=== PATIENT | male | born 1980 ===

== ENCOUNTER 2025-04-26 10:56 | Inpatient (IN) ==
[2025-04-26] MEDS ORDERED: ONDANSETRON 4 MG/2 ML VIAL IV PRN (13:10)
[2025-04-26] MEDS ORDERED: ACETAMINOPHEN 325 MG TABLET PO PRN (13:10)
[2025-04-26] MEDS ORDERED: IPRATROPIUM/ALBUTEROL 3 ML AMPUL.NEB NEB PRN (13:10)
[2025-04-26] MEDS ORDERED: VANCOMYCIN PER PHARMACY IV SCH (13:10)
[2025-04-26] MEDS: 0.9 % SODIUM CHLORIDE 10 ML SYRINGE IV SCH (14:43)
[2025-04-26 14:49] LABS: Vancomycin,Random 5.2 ug/mL
[2025-04-26] MEDS ORDERED: GADOBENATE DIMEGLUMINE 20 ML/VIAL IV ONE (16:56)
[2025-04-26] MEDS: CEFEPIME 1 GM VIAL IV SCH (17:25)
[2025-04-26] MEDS: VANCOMYCIN 1,500 MG in 0.9 % SODIUM CHLORIDE 500 ML IV ONE (17:26)
[2025-04-26 20:18] LABS: C-Reactive Protein 15.70 mg/dL (0.03-0.80)
[2025-04-26] MEDS: SENNOSIDES 1 TABLET PO SCH (21:11)
[2025-04-26] MEDS: MELOXICAM 7.5 MG TABLET PO SCH (21:11)
[2025-04-26] MEDS: DOCUSATE SODIUM 100 MG CAPSULE PO SCH (21:11)
[2025-04-26] MEDS: VANCOMYCIN 500 MG in 0.9 % SODIUM CHLORIDE 100 ML IV ONE (21:12)
[2025-04-26] MEDS: 0.9 % SODIUM CHLORIDE 1,000 ML IV SCH (23:47)
[2025-04-27 06:11] LABS: Basophils # (Auto) 0.01 K/mcL (0.00-0.30); Basophils % (Auto) 0.1 % (0.0-2.0); Eosinophils # (Auto) 0 K/mcL (0.00-0.70); Eosinophils % (Auto) 0 % (0.0-7.0); Hematocrit 42.0 % (40.1-51.0); Hemoglobin 14.3 g/dL (13.7-17.5); Lymphocytes # (Auto) 1.14 K/mcL (1.50-4.80); Lymphocytes % (Auto) 12.5 % (15.5-49.0); Mean Corpuscular HGB Conc 34.0 g/dL (31.0-36.0); Monocytes # (Auto) 0.70 K/mcL (0.10-0.90); Monocytes % (Auto) 7.7 % (1.0-12.0); Neutrophils % (Auto) 79.6 % (38.0-78.0); Platelet Count 269 K/mcL (140-440); RBC 4.67 M/mcL (4.63-6.08); WBC 9.1 K/mcL (4.5-11.0)
[2025-04-27 06:23] LABS: Anion Gap 10.0 (8.0-16.0); Blood Urea Nitrogen 8 mg/dL (6-20); Calcium 8.6 mg/dL (8.6-10.4); Carbon Dioxide 25 mmol/L (22-30); Chloride 102 mmol/L (96-108); Glucose 97 mg/dL (70-105); Potassium 4.7 mmol/L (3.3-5.1); Sodium 137 mmol/L (133-145)
[2025-04-27] MEDS: VANCOMYCIN 1,500 MG in 0.9 % SODIUM CHLORIDE 500 ML IV SCH (08:35)
[2025-04-27] MEDS ORDERED: ENOXAPARIN 40 MG/0.4 ML SYRINGE SQ SCH (09:00)
[2025-04-27] MEDS ORDERED: PROPOFOL 200 MG/20 ML VIAL IV ONE ×2 (09:39→10:57)
[2025-04-27] MEDS ORDERED: MIDAZOLAM 2 MG/2 ML VIAL ONE (09:39)
[2025-04-27] MEDS ORDERED: DEXAMETHASONE 10 MG/ML VIAL ONE (09:40)
[2025-04-27] MEDS ORDERED: METOCLOPRAMIDE 10 MG/2 ML VIAL ONE (09:40)
[2025-04-27] MEDS ORDERED: ePHEDrine 50 MG/5 ML SYRINGE (ANEST) IV ONE (09:40)
[2025-04-27] MEDS ORDERED: ONDANSETRON 4 MG/2 ML VIAL ONE (09:40)
[2025-04-27] MEDS ORDERED: PHENYLephrine 1 MG/10 ML SYRINGE (ANEST) ONE (09:40)
[2025-04-27] MEDS ORDERED: KETOROLAC 30 MG/ML VIAL ONE (09:40)
[2025-04-27] MEDS ORDERED: LIDOCAINE 2% PF 5 ML VIAL ONE (09:40)
[2025-04-27] MEDS ORDERED: GLYCOPYRROLATE 0.2 MG/ML VIAL IV ONE (09:40)
[2025-04-27] MEDS ORDERED: FAMOTIDINE/PF 20 MG/2 ML VIAL IV ONE (09:40)
[2025-04-27] MEDS ORDERED: TRANEXAMIC ACID 1,000 MG/10 ML VIAL ONE (09:40)
[2025-04-27] MEDS ORDERED: SUCCINYLCHOLINE 200 MG/10 ML VIAL IV ONE ×3 (09:49→09:55)
[2025-04-27] MEDS ORDERED: DEXMEDETOMIDINE HCL 200 MCG/2 ML VIAL ONE (11:28)
[2025-04-27] MEDS ORDERED: 0.9 % SODIUM CHLORIDE 100 ML IV ONE (11:28)
[2025-04-27] MEDS ORDERED: fentaNYL 100 MCG/2 ML VIAL IV PRN (11:36)
[2025-04-27] MEDS ORDERED: DROPERIDOL 5 MG/2 ML VIAL IV PRN (11:36)
[2025-04-27] MEDS ORDERED: HYDROmorphone 0.5 MG/0.5 ML SYRINGE IV PRN (11:36)
[2025-04-27] MEDS ORDERED: IPRATROPIUM/ALBUTEROL 3 ML AMPUL.NEB NEB PRN (11:36)
[2025-04-27] MEDS: VANCOMYCIN 1 GM VIAL TOPICAL SCH (11:40)
[2025-04-27] MEDS ORDERED: ROPIVACAINE HCL/PF 30 ML VIAL IJ ONE (12:03)
[2025-04-27] MEDS: LACTATED RINGERS 1,000 ML IV SCH (21:00)
[2025-04-28 05:46] LABS: Basophils # (Auto) 0.01 K/mcL (0.00-0.30); Basophils % (Auto) 0.1 % (0.0-2.0); Eosinophils # (Auto) 0 K/mcL (0.00-0.70); Eosinophils % (Auto) 0 % (0.0-7.0); Hematocrit 36.9 % (40.1-51.0); Hemoglobin 12.6 g/dL (13.7-17.5); Lymphocytes # (Auto) 0.89 K/mcL (1.50-4.80); Lymphocytes % (Auto) 7.5 % (15.5-49.0); Mean Corpuscular HGB Conc 34.1 g/dL (31.0-36.0); Monocytes # (Auto) 0.67 K/mcL (0.10-0.90); Monocytes % (Auto) 5.6 % (1.0-12.0); Neutrophils % (Auto) 86.5 % (38.0-78.0); Platelet Count 262 K/mcL (140-440); RBC 4.11 M/mcL (4.63-6.08); WBC 11.9 K/mcL (4.5-11.0)
[2025-04-28 06:10] LABS: C-Reactive Protein 8.91 mg/dL (0.03-0.80)
[2025-04-28 06:15] LABS: Anion Gap 9.0 (8.0-16.0); Blood Urea Nitrogen 11 mg/dL (6-20); Calcium 8.0 mg/dL (8.6-10.4); Carbon Dioxide 22 mmol/L (22-30); Chloride 106 mmol/L (96-108); Glucose 103 mg/dL (70-105); Potassium 3.9 mmol/L (3.3-5.1); Sodium 137 mmol/L (133-145)
[2025-04-28] MEDS: ENOXAPARIN 40 MG/0.4 ML SYRINGE SQ SCH (09:48)
[2025-04-28] MEDS ORDERED: MINERAL OIL 1 DOSE ENEMA PR PRN (10:10)
[2025-04-28] MEDS ORDERED: BISACODYL 10 MG SUPP.RECT PR PRN (10:10)
[2025-04-28] MEDS ORDERED: POLYETHYLENE GLYCOL 3350 17 GM PACKET PO PRN (10:10)
[2025-04-28] MEDS: MAGNESIUM HYDROXIDE 30 ML ORAL.SUSP PO PRN (11:08)
[2025-04-29 06:04] LABS: Basophils # (Auto) 0.01 K/mcL (0.00-0.30); Basophils % (Auto) 0.1 % (0.0-2.0); Eosinophils # (Auto) 0 K/mcL (0.00-0.70); Eosinophils % (Auto) 0 % (0.0-7.0); Hematocrit 39.6 % (40.1-51.0); Hemoglobin 13.2 g/dL (13.7-17.5); Lymphocytes # (Auto) 1.38 K/mcL (1.50-4.80); Lymphocytes % (Auto) 18.0 % (15.5-49.0); Mean Corpuscular HGB Conc 33.3 g/dL (31.0-36.0); Monocytes # (Auto) 0.60 K/mcL (0.10-0.90); Monocytes % (Auto) 7.8 % (1.0-12.0); Neutrophils % (Auto) 73.6 % (38.0-78.0); Platelet Count 284 K/mcL (140-440); RBC 4.38 M/mcL (4.63-6.08); WBC 7.7 K/mcL (4.5-11.0)
[2025-04-29 06:34] LABS: Anion Gap 8.0 (8.0-16.0); Blood Urea Nitrogen 11 mg/dL (6-20); Calcium 8.3 mg/dL (8.6-10.4); Carbon Dioxide 26 mmol/L (22-30); Chloride 103 mmol/L (96-108); Glucose 86 mg/dL (70-105); Potassium 3.9 mmol/L (3.3-5.1); Sodium 137 mmol/L (133-145)
== END 2025-04-29 13:44 | disposition home or self-care (01) | DRG 464 ==
LOC: MEDSUR 13:00
PROVIDERS: ADMIT Internal Medicine; ATTEND Internal Medicine